=== PATIENT | female | born 1935 | race Caucasian/White ===

== ENCOUNTER 2018-04-13 09:02 | Outpatient (CLI) | payer MEDICARE, BC ==
--- NOTE | 2018-04-13 12:12 | XRAY Report ---
ESOPHAGRAM: 04/13/2018 CLINICAL INDICATION: Food sticking. FINDINGS: Esophagram was performed in the upright and prone positions. The esophagus is normal in caliber. Diffuse tertiary contractions are seen. No esophageal ulceration, mass lesion, or stricturing is identified. The hypopharynx appears unremarkable. There is a large hiatal hernia present, producing reflux throughout the course of the study. A 13 mm barium pill passed freely through the esophagus and into the stomach. IMPRESSION: PRESBYESOPHAGUS. LARGE HIATAL HERNIA, PRODUCING, REFLUX. NO EVIDENCE OF ESOPHAGEAL ULCERATION OR MASS LESION. FLUOROSCOPY TIME: 2 minutes 10 seconds; 25 spot images obtained. TD: 04/13/2018 11:40
== END 2018-04-13 09:03 | disposition home or self-care (01) ==
LOC: DI 09:02
PROVIDERS: ATTEND Family Medicine
DX: K22.8 Other specified diseases of esophagus (principal); K44.9 Diaphragmatic hernia without obstruction or gangrene; K21.9 Gastro-esophageal reflux disease without esophagitis
CPT/HCPCS: 74220

== ENCOUNTER 2018-05-14 11:38 | Emergency (ER) | payer MEDICARE, BC ==
[2018-05-14 11:47] VITALS: BP 127/58
== END 2018-05-14 13:17 | disposition left against medical advice (07) ==
LOC: ED 11:38
DX: Z53.21 Procedure and treatment not carried out due to patient leaving prior to being seen by health care provider (principal)

== ENCOUNTER 2018-05-28 09:41 | Outpatient (CLI) | payer MEDICARE, BC ==
[2018-05-28 10:40] LABS: CREATININE 1.1 mg/dL (0.4-1.0)
== END 2018-05-28 09:42 | disposition home or self-care (01) ==
LOC: LAB 09:41
PROVIDERS: ATTEND Surgery
DX: K44.9 Diaphragmatic hernia without obstruction or gangrene (principal); R13.10 Dysphagia, unspecified; R49.0 Dysphonia; R06.02 Shortness of breath
CPT/HCPCS: 36415; 82565

== ENCOUNTER 2019-04-15 13:40 | Outpatient (CLI) | payer MEDICARE, BC ==
--- NOTE | 2019-04-16 14:26 | XRAY Report ---
Reason: ACUTE ON CHRONIC L HIP PAIN Procedure Date: 04/15/2019 Accession Number: [id number] / [id number] Procedure: XR - Hip w/Pelvis 2-3V LT CPT Code: FULL RESULT: EXAM: LEFT HIP RADIOGRAPHY EXAM DATE: 04/15/2019 02:04 PM. CLINICAL HISTORY: Acute on chronic left hip pain. COMPARISON: None. TECHNIQUE: 2 views. FINDINGS: Bones: Normal. No fractures or bone lesion. Joints: Moderate to severe asymmetric degenerative arthritis of the left hip with moderate joint space narrowing and osteophytosis of the femoral head, subchondral sclerosis and probable degenerative subchondral cyst formation. Mild degenerative disk space narrowing and facet arthrosis at L4-L5 and L5-S1 greater on the right. Soft Tissues: Normal. No soft tissue swelling. IMPRESSION: 1. Asymmetric degenerative arthritis of the left hip as described. No appreciable acute fracture. 2. Degenerative disk and facet changes lower lumbar spine evident on the frontal radiograph. [facility]
== END 2019-04-15 13:41 | disposition home or self-care (01) ==
LOC: DI 13:40
PROVIDERS: ATTEND Family Medicine
DX: M16.12 Unilateral primary osteoarthritis, left hip (principal); M48.061 Spinal stenosis, lumbar region without neurogenic claudication

== ENCOUNTER 2021-11-21 15:18 | Outpatient (CLI) | payer MEDICARE, BC | END 2021-11-21 15:19 | disposition short-term general hospital (02) | LOC: EMS 15:18 | DX: R07.9 Chest pain, unspecified (principal) | CPT/HCPCS: A0425; A0427 ==